=== PATIENT | male | born 1955 | race Caucasian/White ===

== ENCOUNTER 2024-04-19 09:35 | Emergency (ER) | payer MEDICARE, OTHER ==
[~2024-04-19] VITALS: Ht 167.6 cm; Wt 67.1 kg
[2024-04-19 10:07] VITALS: BP 188/75; TEMP 98.3; O2SAT 99
== END 2024-04-19 10:07 | disposition home or self-care (01) ==
LOC: ER 09:39
DX: I10 Essential (primary) hypertension (principal); I25.2 Old myocardial infarction; Z60.2 Problems related to living alone